=== PATIENT | female | born 1985 | race Caucasian/White ===

== ENCOUNTER 2021-02-26 09:11 | Emergency (ER) | payer BC ==
--- NOTE | 2021-02-26 10:08 | EDM.PDOC ---
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 This all started back on Saturday with dysuria. She was prescribed bactrim and that night started having more irritation like she had a yeast infection. She tried a couple different over the counter treatments for yeast infection and nothing has worked. She has more pain so she went to the walk in clinic yesterday and they did a wet prep that was negative for candidiasis and bacteria. They also did a repeat UA and it s howed no UTI. She has more pain in the vulva and there is a yellow/greenish discharge. She had a little blood today. She has no fever or chills but she does not feel well. She had some abdominal pain initially and that is why she went in but she feels good now. She has no chest pain or shortness of breath. She has no trauma to the area such as rough intercourse. Onset: Gradual Duration: Day(s): (6) Location: Reports: Other (vulva) Quality: Reports: Sharp Severity: Severe Improves with: Reports: Immobilization Worsens with: Reports: Movement Context: Denies: Trauma Associated Symptoms: Reports: No Other Symptoms Vaginal Pain Score (Numeric/FACES): 8 - Related Data Allergies Allergy/AdvReac Type Severity Reaction Status Date / Time ciprofloxacin [From Cipro] Allergy Cannot Verified 02/26/21 09:32 Remember morphine Allergy Cannot Verified 02/26/21 09:32 Remember promethazine [From Phenergan] Allergy Cannot Verified 02/26/21 09:32 Remember Home Meds: Home Meds Nystatin/Triamcin [Nystatin-Triamcinolone Cream] 1 gm TP BID #30 gram 02/26/21 [Rx] hydrOXYzine HCL [hydrOXYzine] 25 mg PO BEDTIME PRN 02/26/21 [History] methylPREDNISolone [Medrol Dose Pack] 84 mg PO DAILY #1 dospk 02/26/21 [Rx] Past Medical History - Past Health History Medical/Surgical History: Denies Medical/Surgical History Social & Family History - Tobacco Use Tobacco Use Status *Q: Never Tobacco User Second Hand Smoke Exposure: No - Caffeine Use Caffeine Use: Reports: Coffee - Recreational Drug Use Recreational Drug Use: No ED ROS GENERAL - Review of Systems Review Of Systems: See Below Constitutional: Reports: No Symptoms HEENT: Reports: No Symptoms Respiratory: Reports: No Symptoms Cardiovascular: Reports: No Symptoms Endocrine: Reports: No Symptoms GI/Abdominal: Reports: No Symptoms : Reports: Other (Vulvar pain) Musculoskeletal: Reports: No Symptoms Skin: Reports: No Symptoms ED EXAM, RENAL/ - Physical Exam Exam: See Below Exam Limited By: No Limitations General Appearance: Alert, No Apparent Distress Ears: Normal External Exam Nose: Normal Inspection Head: Atraumatic, Normocephalic Neck: Normal Inspection Respiratory/Chest: No Respiratory Distress, Lungs Clear, Normal Breath Sounds Cardiovascular: Regular Rate, Rhythm, No Edema, No Murmur GI/Abdominal: Soft, Non-Tender, No Organomegaly, No Mass (Female) Exam: Other (The labia are tender with moderate edema of the labia minora. Slight whitish discharge.) Course - Vital Signs Last Recorded V/S: Last Vital Signs Temp 98.7 F 02/26/21 09:27 Pulse 87 02/26/21 09:27 Resp 18 02/26/21 09:27 BP 149/81 H 02/26/21 09:27 Pulse Ox 99 02/26/21 09:27 - Orders/Labs/Meds Orders: Active Orders 24 hr Category Date Time Status CULTURE HERPES SIMPLEX VIRUS [MREF] Stat Lab 02/26/21 12:42 Ordered MISCELLANEOUS CULT [MREF] Stat Lab 02/26/21 13:00 Ordered Labs: Laboratory Tests 02/26/21 Range/Units 09:48 C trachomatis DNA (PCR) Not detected N gonorrhoeae DNA (PCR) Not detected - Re-Assessments/Exams Free Text/Narrative Re-Assessment/Exam: 02/26/21 10:10 I ordered a gonorrhea and chlamydia through urine. 02/26/21 12:12 Her gonorrhea and chlamydia are negative. I called Dr Hayward and he recommended some nystatin cream with a steroid in it, sits bath with baby soap, ice and some benadryl. He thinks she may have reacted to the bactrim. I told her the plan and she got upset and started crying. She said she has tried most of those things and this is negatively affecting her life. She asked if he could come in and see her. I talked to Dr Hayward and he agreed to come in and see her. 02/26/21 13:07 He saw her and with loops he saw a small fissure and swelling. He is doing a culture and herpes culture. He recommended a medrol dose pack, epsum salts, and benadryl. Departure - Departure Time of Disposition: 13:10 Disposition: Home, Self-Care 01 Condition: Good Clinical Impression: Vulvar burning, Vulvar fissure - Discharge Information *PRESCRIPTION DRUG MONITORING PROGRAM REVIEWED*: Not Applicable *COPY OF PRESCRIPTION DRUG MONITORING REPORT IN PATIENT CIELO: Not Applicable Prescriptions: methylPREDNISolone [Medrol Dose Pack] 84 mg PO DAILY #1 dospk Nystatin/Triamcin [Nystatin-Triamcinolone Cream] 1 gm TP BID #30 gram Referrals: Cecile Urbano PA [Primary Care Provider] - Austin Hayward MD [Physician] - 1 Week Forms: ED Department Discharge Additional Instructions: Take the medrol dose pack as prescribed. Take the upsom salts 2 tablespoons in 16 ounces of water and make a compress and apply that to the affected area. Try some benadryl 50mg every 6 hours as needed for symptoms. Follow up with Dr Hayward. Please return if you are worse. Sepsis Event Note (ED) - Evaluation Sepsis Screening Result: No Definite Risk - Focused Exam Vital Signs: Vital Signs Temp Pulse Resp BP Pulse Ox 02/26/21 09:27 98.7 F 87 18 149/81 H 99 - My Orders Last 24 Hours: My Active Orders 02/26/21 12:42 CULTURE HERPES SIMPLEX VIRUS [MREF] Stat 02/26/21 13:00 MISCELLANEOUS CULT [MREF] Stat - Assessment/Plan Last 24 Hours: My Active Orders 02/26/21 12:42 CULTURE HERPES SIMPLEX VIRUS [MREF] Stat 02/26/21 13:00 MISCELLANEOUS CULT [MREF] Stat
[2021-02-26 11:35] LABS: C. TRACHOMATIS BY PCR NOT DETECTED; N. GONORRHOEAE BY PCR NOT DETECTED
--- NOTE | 2021-02-26 13:11 | PCM.CONS ---
H&P History of Present Illness - General Date of Service: 02/26/21 Source of Information: Patient History Limitations: Reports: No Limitations - History of Present Illness Initial Comments - Free Text/Narative: 35-year-old previous C-sections. Patient presented to emergency room complaining of vulvar irritation beginning last January. Prior to that she had taken 3 doses of Septra DS for urinary tract infection symptoms. She is complaining of vulvar irritation pain she has been seen and had negative wet prep previously elsewhere. The patient has had no history of herpes genitalis in the past. The vulvar pain is also associated with edema. Examination revealed vulvar edema of the labia minora bilaterally with medial surface of each labia minora showing small "cracks" or fissures.. Utilizing loupes no blisters or ulcerations are seen however herpes simplex virus culture taken. Unable to do vaginal exam because of the pain associated with the vulvar edema and "cracks" or fissures. Impression N94.89vulvar burning N90.89 Vulvar fissure Plan: Initially would have prescribed Domeboro packets dissolved 1-3 in 16 ounces of water but not available at the pharmacy which is the only 1 open on Saturday. Patient will check with her pharmacy in [place] Saturday to see if they have the Domeboro packets or can order them if treatment below does not work effectively. Epson salts 1- 2 tablespoons dissolved in 16 ounces of water and utilize as a compress on the vulva 15 to 30 minutes 3-4 times daily may also place large amount and shallow tub of water and sitz bath 3-4 times daily Benadryl 25 mg OTC use every 6 hours for the next 12 to 24 hours to see if this will help with the irritation and edema in the vulvar area. Do not drive while taking this medication Medrol Dosepak take as directed on the package. Herpes simplex culture taken. Contact my office Saturday if patient thinks Domeboro would help and they can order it at [place] pharmacy. Patient given my nurses name and phone number. See Dr. Lopez for follow-up if symptoms persist Pelvic rest until symptoms resolved. Patient cautioned to avoid Septra/Bactrim in the future. Possible untoward effect of sulfa. Patient has had no skin rash. Symptom Onset Date: 02/21/21 Duration of Symptoms: Reports: Day(s): Quality: Reports: Burning, Throbbing Improves with: Reports: None Worsens with: Reports: None Associated Symptoms: Reports: No Other Symptoms Vaginal Pain Score (Numeric/FACES): 8 - Related Data Allergies/Adverse Reactions: Allergies Allergy/AdvReac Type Severity Reaction Status Date / Time ciprofloxacin [From Cipro] Allergy Cannot Verified 02/26/21 09:32 Remember morphine Allergy Cannot Verified 02/26/21 09:32 Remember promethazine [From Phenergan] Allergy Cannot Verified 02/26/21 09:32 Remember Home Medications: Home Meds Nystatin/Triamcin [Nystatin-Triamcinolone Cream] 1 gm TP BID #30 gram 02/26/21 [Rx] hydrOXYzine HCL [hydrOXYzine] 25 mg PO BEDTIME PRN 02/26/21 [History] methylPREDNISolone [Medrol Dose Pack] 84 mg PO DAILY #1 dospk 02/26/21 [Rx] Past Medical History - Past Health History Medical/Surgical History: Denies 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 No vaginal deliveries. One miscarriage.) : 3 Para: 2 (2011) Social & Family History - Tobacco Use Tobacco Use Status *Q: Never Tobacco User Second Hand Smoke Exposure: No - Caffeine Use Caffeine Use: Reports: Coffee - Recreational Drug Use Recreational Drug Use: No H&P Review of Systems - Review of Systems: Review Of Systems: See Below General: Reports: No Symptoms HEENT: Reports: No Symptoms Pulmonary: Reports: No Symptoms Cardiovascular: Reports: No Symptoms Gastrointestinal: Reports: No Symptoms Genitourinary: Reports: Burning, Pain Musculoskeletal: Reports: No Symptoms Skin: Reports: No Symptoms Psychiatric: Reports: No Symptoms Neurological: Reports: No Symptoms Hematologic/Lymphatic: Reports: No Symptoms Immunologic: Reports: No Symptoms Exam - Exam Exam: See Below (More like vaginal fissures (labia minora bilaterally medial surface with some labia minora edema as well.)) - Vital Signs Vital Signs: Last Vital Signs Temp 98.7 F 02/26/21 09:27 Pulse 87 02/26/21 09:27 Resp 18 02/26/21 09:27 BP 149/81 H 02/26/21 09:27 Pulse Ox 99 02/26/21 09:27 Weight: 219 lb - Exam General: Alert, Oriented (Female) Exam: Vaginal Tears - Patient Data Lab Results Last 24 hrs: Laboratory Results - last 24 hr 02/26/21 Range/Units 09:48 C trachomatis DNA (PCR) Not detected N gonorrhoeae DNA (PCR) Not detected Sepsis Event Note - Evaluation Sepsis Screening Result: No Definite Risk - Focused Exam Vital Signs: Vital Signs Temp Pulse Resp BP Pulse Ox 02/26/21 09:27 98.7 F 87 18 149/81 H 99 Consult PN Assessment/Plan (1) Vulvar burning SNOMED Code(s): 741975723 Code(s): N94.89 - OTH COND ASSOC W FEMALE GENITAL ORGANS AND MENSTRUAL CYCLE Current Visit: Yes (2) Vulvar fissure SNOMED Code(s): 4422727 Code(s): N90.89 - OTH NONINFLAMMATORY DISORDERS OF VULVA AND PERINEUM C urrent Visit: Yes Problem List Initiated/Reviewed/Updated: No Plan: Return if symptoms worsen or concerns.
== END 2021-02-26 13:20 | disposition home or self-care (01) ==
LOC: JD.ED 09:11
DX: N90.89 Other specified noninflammatory disorders of vulva and perineum (principal); Z88.1 Allergy status to other antibiotic agents; Z88.5 Allergy status to narcotic agent; Z88.8 Allergy status to other drugs, medicaments and biological substances
CPT/HCPCS: 87070; 87205; 87491; 87591; 87801; 99283

== ENCOUNTER 2021-06-09 07:18 | Day surgery (SDC) | payer BC ==
[~2021-06-09 07:18] MED LIST: Lactated Ringers 1,000 ML IV SCH; Lidocaine 1%/Sod Bicarbonate in NS 8.4% 1 ML Syringe IDERM PRN; Sodium Chloride 0.9% 10 ML Syringe FLUSH PRN
[2021-06-09] MEDS ORDERED: Lidocaine 1% 4 ML ONE (07:53)
[2021-06-09] MEDS ORDERED: fentaNYL 100 MCG/2 ML SDV ONE ×2 (07:54→09:42)
[2021-06-09] MEDS ORDERED: Midazolam 1 MG/ML 2 ML SDV ONE (07:54)
[2021-06-09] MEDS ORDERED: Propofol 200 MG/20 ML SDV ONE (07:54)
--- NOTE | 2021-06-09 08:13 | PCM.LDHP ---
L&D History of Present Illness - General Date of Service: 06/09/21 Admit Problem/Dx: Admission Diagnosis/Problem Admission Diagnosis/Problem 06/09/21 08:02 Missed Source of Information: Patient History Limitations: Reports: No Limitations - History of Present Illness Introduction:: Paola is a 36-year-old 4 now para 2-0-2-2 female who has had vaginal bleeding and cramping. With serial beta hCGs and has been noted to have decreasing titers. Ultrasound done at [facility] in [place] shows an irregular endometrial cavity with no evidence of cardiac activity or . Findings are consistent with a missed . Discussions been held with patient as to options of intervention including passage of the tissue, Cytotec medical induction of miscarriage or dilation and suction curettage. 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 The procedure, risk, benefits, alternatives of care discussed in detail with patient. She appears understand, wishes to proceed and signed consent. History: Menarche age 13, cycles q. 28-30 days duration 7 days. Patient is not using any contraception at the time of this conception. This was a desired . She does not have any significant symptoms at this time. She is doing well emotionally with this. Patient denied any significant abnormal Pap smears or STIs in the past. She has had x2. She has had 1 previous miscarriage which she passed naturally. Past medical history: 1. Spontaneous x2 2. Restless leg syndrome 3. Dysmenorrhea with clinical suspicion of endometriosis Past surgical history: 1. ERCP 2. Back surgery-11/21/2016 with L5-S1 discectomy 3. Back surgery 11/28/2016redo of L5-S1 discectomy 4. Back [id number] and fusionL5-S1 5. Echocardiogram done transthoracically 08/23/2016 6. Hysterosalpingogram 06/13/2015 7. Spinal tap 01/2015 to evaluate possibility of MS due to migraine headaches. 8. Thoracentesis for pulmonary effusion September 2014hospital-acquired pneumonia as a cause. 9. Bariatric surgery 11/30/2013 consisting of lap band removal and sleeve gastrectomy 10. T&A 07/21/2013 11. EGD 07/02/2013 12. 12/22/2012 13. Repeat 2018 14. Initial bariatric surgery consist of lap band 08/24/2009 15. [place] tooth extraction 2007 laparoscopic cholecystectomy 1998. Medications: 1. Probiotic daily 2. vitamin daily 3. Vitamin D 2000 international units daily Allergies: 1. Penicillin and amoxicillin specifically causes rash and itching 2. Cipro which given IV previously caused phlebitis 3. Morphine which cause migraines 4. Bee bites. Patient does report that cephalosporins are okay and do not cause any reactions Family history: Mother 2016 at age 71. Suffered from diabetes mellitus, rheumatoid arthritis, obesity, depression, hypertension, hypercholesterolemia, benign brain neoplasm. Cause of not specifically apparent. Father is alive but suffers from hypercholesterolemia, hypertension, posttraumatic stress disorder, obesity, depression, anxiety, arthritis. Patient has 4 sisters 1 with endometriosis and substance abuse disorder and depression the other 3 have depression and some mental health issues. Patient has brothers all with obesity and depression symptoms. Paternal grandfather secondary to diabetes mellitus and COPD paternal grandmother secondary stroke, did have mental health disorders. Paternal grandfather secondary stroke. Also suffered from depression. Maternal grandfather secondary to diabetes complications and obesity. Maternal uncle with some type of lung metastases. Social history: Patient is . She lives in [place], [place]. 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 She does not use any significance alcohol, drugs or tobacco. 's name is Shree. Review of systems: In general patient has no complaints other than cramping and bleeding consistent with miscarriage. No significant symptoms noted. Skin: Negative Lungs: No infectious symptoms or shortness of breath Cardiovascular: No chest pain or exercise intolerance Breasts: No lumps, changes in size, pain, dimpling, discharge or axillary or supraclavicular concerns. GI: Negative : As per HPI. Musculoskeletal: Negative Neurological: Negative Physical exam: In general the patient is well-developed, well-nourished, pleasant female of stated age in no acute distress. Skin is warm dry without lesions. HEENT, neck and back within normal limits. Lungs are clear with good breath sounds in all lung moreno. Cardiovascular exam shows regular and rhythm without murmurs. Abdomen is flat, soft, nontender without masses or organomegaly. Positive bowel sounds are noted. No inguinal lymphadenopathy or hernias are noted. Genital exam will be performed under anesthesia. Ultrasound done in [place] showed an essentially normal size uterus and otherwise findings as described above.. Extremities and neurological exam are grossly within normal limits. - Related Data Allergies/Adverse Reactions: Allergies Allergy/AdvReac Type Severity Reaction Status Date / Time ciprofloxacin [From Cipro] Allergy Cannot Verified 02/26/21 09:32 Remember morphine Allergy Cannot Verified 02/26/21 09:32 Remember promethazine [From Phenergan] Allergy Cannot Verified 02/26/21 09:32 Remember Home Medications: Home Meds Nystatin/Triamcin [Nystatin-Triamcinolone Cream] 1 gm TP BID #30 gram 02/26/21 [Rx] hydrOXYzine HCL [hydrOXYzine] 25 mg PO BEDTIME PRN 02/26/21 [History] methylPREDNISolone [Medrol Dose Pack] 84 mg PO DAILY #1 dospk 02/26/21 [Rx] Past Medical History - Past Health History Medical/Surgical History: Denies 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 No vaginal deliveries. One miscarriage.) Social & Family History - Caffeine Use Caffeine Use: Reports: Coffee H&P Review of Systems - Review of Systems: Review Of Systems: See Below L&D Exam - Exam Exam: See Below - Problem List (1) Missed SNOMED Code(s): 14966165 ICD Code: O02.1 - MISSED Status: Acute Current Visit: Yes Problem List Initiated/Reviewed/Updated: Yes Orders Last 24hrs: Active Orders 24 hr Category Date Time Status Peripheral IV Care [RC] . DIRECTED Care 06/09/21 00:01 Active Verify Patient Consent Obtain [RC] ASDIRECTED Care 06/09/21 00:01 Active CBC WITH AUTO DIFF [HEME] Routine Lab 06/09/21 08:00 Ordered TYPE AND SCREEN [BBK] Routine Lab 06/09/21 08:00 Ordered Lactated Ringers [Ringers, Lactated] 1,000 ml Med 06/09/21 00:01 Active IV ASDIRECTED Lidocaine 1%/Sod Bicarbonate [Buffered Lidocaine 1% in Med 06/09/21 00:01 Active NS 8.4%] 0.25 ml IDERM ONETIME PRN Sodium Chloride 0.9% [Saline Flush] Med 06/09/21 00:01 Active 10 ml FLUSH ASDIRECTED PRN Medication Administration Instruction [OM.PC] Routine Oth 06/09/21 00:01 Ordered Peripheral IV Insertion Adult [OM.PC] Routine Oth 06/09/21 00:01 Ordered Medication Orders Lactated Ringer's (Ringers, Lactated) 1,000 mls @ 125 mls/hr IV ASDIRECTED FREDA Stop: 06/09/21 23:00 Lidocaine/Sodium Bicarbonate (Lidocaine 1%/Sod Bicarbonate In Ns 8.4% 1 Ml S yringe) 0.25 ml IDERM ONETIME PRN PRN Reason: Prior to IV Start Stop: 06/09/21 18:00 Sodium Chloride (Sodium Chloride 0.9% 10 Ml Syringe) 10 ml FLUSH ASDIRECTED PRN PRN Reason: Keep Vein Open Stop: 06/09/21 18:00 Assessment/Plan Comment:: 1. First trimester missed by laboratory testing, clinical history and ultrasound evaluation 2. History of multiple surgical procedures. 3. History of miscarriage x1 and x2 4. Blood is O+ per evaluation done previouslypatient not a candidate for Rh immunoglobulin therapy. Plan: 1. Dilation and suction curettage under general anesthesia. Procedure, risk, benefits, alternatives of care and follow-up were discussed in detail with patient. 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 She desires dilation and suction curettage as therapy of choice. She has signed consent. 2. DVT prophylaxis with SCDs 3. CBC preoperatively 4. Ancef 2 g IV preoperatively for infection prophylaxis.
--- NOTE | 2021-06-09 08:22 | PCM.PREANE ---
Preanesthetic Assessment - Procedure Proposed Procedure: Dilation and curettage - Anesthesia/Transfusion/Family Hx Anesthesia History: Prior Anesthesia Without Reaction Family History of Anesthesia Reaction: No Transfusion History: No Prior Transfusion(s) Intubation History: Unknown - Review of Systems General: No Symptoms Pulmonary: No Symptoms Cardiovascular: No Symptoms Gastrointestinal: Abdominal Pain (intermittent cramping) Neurological: Headache Other: Reports: Easy Bruising, Depression, Anxiety - Physical Assessment NPO Status Date: 06/08/21 NPO Status Time: 21:30 Vital Signs: 103/65 HR 60 RR 16 100% 98.7 Height: 1.68 m Weight: 93.6 kg ASA Class: 3 Mental Status: Alert & Oriented x3 Dentition: Reports: Normal Dentition Thyro-Mental Finger Breadths: 3 Mouth Opening Finger Breadths: 3 ROM/Head Extension: Full Lungs: Clear to Auscultation, Normal Respiratory Effort Cardiovascular: Regular Rate, Regular Rhythm - Lab Values: Labs reviewed and okay to proceed - Allergies Allergies/Adverse Reactions: Allergies Allergy/AdvReac Type Severity Reaction Status Date / Time ciprofloxacin [From Cipro] Allergy Other Verified 06/09/21 08:55 morphine Allergy Headache Verified 06/09/21 08:55 Penicillins Allergy Rash Verified 06/09/21 08:53 promethazine [From Phenergan] Allergy Other Verified 06/09/21 08:55 sulfamethoxazole Allergy Rash Verified 06/09/21 08:55 [From Bactrim] trimethoprim [From Bactrim] Allergy Rash Verified 06/09/21 08:55 - Blood Blood Available: No Product(s) Available: None - Anesthesia Plan Pre-Op Medication Ordered: None - Acknowledgements Anesthesia Type Planned: MAC Pt an Appropriate Candidate for the Planned Anesthesia: Yes Alternatives and Risks of Anesthesia Discussed w Pt/Guardian: Yes Pt/Guardian Understands and Agrees with Anesthesia Plan: Yes PreAnesthesia Questionnaire - Past Health History Medical/Surgical History: Denies Medical/Surgical History HEENT History: Reports: Impaired Vision Other HEENT History: wears glasses 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 No vaginal deliveries. One miscarriage.) Other OB/BYN History: Spontaneous abortions x 2, dysmenorrhea Neurological History: Reports: Migraines Other Neuro History: Restless legs syndrome Psychiatric History: Reports: Anxiety, Depression Hematologic History: Reports: Anemia - Past Surgical History HEENT Surgical History: Reports: Adenoidectomy, Oral Surgery, Tonsillectomy Respiratory Surgical History: Reports: Thoracentesis Other Respiratory Surgeries/Procedures: Thoracentesis for pulmonary effusion September 2014- hospital aquired pneumonia as a cause GI Surgical History: Reports: Bariatric Procedure, Cholecystectomy, EGD, Other (See Below) Other GI Surgeries/Procedures: Lap band removal and sleeve gastrectomy 11/30/2013 Female Surgical History: Reports: Section Other Female Surgeries/Procedures: ERCP; hysterosalpingogram 06/13/2015; c- section x2 Neurological Surgical History: Reports: Lumbar Spine Other Neurological Surgeries/Procedures: 11/21/2016: L5- S1 discectomy; 11/28/16 redo L5-S1; 11/30/16 L5-S1 decompression and fusion; Spinal tap 01/2015 (migraine headaches) - Past Imaging History Past Imaging History: Reports: Cardiac Echo (08/23/2016) - SUBSTANCE USE Tobacco Use Status *Q: Former Tobacco User (Quit 2016) Tobacco Use Within Last Twelve Months: No Second Hand Smoke Exposure: No Days Per Week of Alcohol Use: 0 Number of Drinks Per Day: 0 Total Drinks Per Week: 0 Recreational Drug Use History: No - HOME MEDS Home Medications: Home Meds Nystatin/Triamcin [Nystatin-Triamcinolone Cream] 1 gm TP BID #30 gram 02/26/21 [Rx] hydrOXYzine HCL [hydrOXYzine] 25 mg PO BEDTIME PRN 02/26/21 [History] methylPREDNISolone [Medrol Dose Pack] 84 mg PO DAILY #1 dospk 02/26/21 [Rx] - CURRENT (IN HOUSE) MEDS Current Meds: Current Medications Lactated Ringer's (Ringers, Lactated) 1,000 mls @ 125 mls/hr IV ASDIRECTED FREDA Stop: 06/09/21 23:00 Lidocaine/Sodium Bicarbonate (Lidocaine 1%/Sod Bicarbonate In Ns 8.4% 1 Ml Syringe) 0.25 ml IDERM ONETIME PRN PRN Reason: Prior to IV Start Stop: 06/09/21 18:00 Sodium Chloride (Sodium Chloride 0.9% 10 Ml Syringe) 10 ml FLUSH ASDIRECTED PRN PRN Reason: Keep Vein Open Stop: 06/09/21 18:00 Discontinued Medications Fentanyl (Fentanyl 100 Mcg/2 Ml Sdv) Confirm Administered Dose 100 mcg .ROUTE .STK-MED ONE Stop: 06/09/21 07:55 Lidocaine HCl (Xylocaine-Mpf 1%) Confirm Administered Dose 4 mls @ as directed .ROUTE .STK-MED ONE Stop: 06/09/21 07:54 Midazolam HCl (Midazolam 1 Mg/Ml 2 Ml Sdv) Confirm Administered Dose 2 mg .ROUTE .STK-MED ONE Stop: 06/09/21 07:55 Propofol (Propofol 200 Mg/20 Ml Sdv) Confirm Administered Dose 200 mg .ROUTE .STK-MED ONE Stop: 06/09/21 07:55
[2021-06-09] MEDS ORDERED: Ketamine 500 mg/10 ML MDV ONE (08:59)
[2021-06-09] MEDS ORDERED: ceFAZolin 1 GM Vial ONE (09:17)
[2021-06-09] MEDS ORDERED: Ketorolac 30 MG/ML SDV ONE (09:41)
[2021-06-09] MEDS ORDERED: Ondansetron 4 MG/2 ML SDV IVPUSH PRN ×2 (09:43→09:53)
[2021-06-09] MEDS ORDERED: Ondansetron 4 MG/2 ML SDV ONE (09:46)
[2021-06-09] MEDS ORDERED: HYDROmorphone 0.5 MG/0.5 ML Syringe ONE (09:47)
--- NOTE | 2021-06-09 09:47 | PCM.OPNOTE ---
- General Post-Op/Procedure Note Date of Surgery/Procedure: 06/09/21 Operative Procedure(s): Exam under anesthesia, dilation and suction curettage Findings: Uterus was enlarged approximately 8 weeks size. It was anterior in position, freely mobile. Cervix was somewhat stenotic. No adnexal abnormalities were noted. Uterus sounded to 10.5 cm. Moderate amount of tissue was obtained consistent with products of conception and consistent with patient's gestational age. Pre Op Diagnosis: Missed Post-Op Diagnosis: Same Anesthesia Technique: MAC Primary Surgeon: Nabil Lopez Anesthesia Provider: Jesús Faye Pathology: Endometrial curettings consistent with products of conception. EBL in mLs: 10 Complications: None Condition: Good Free Text/Narrative:: Surgery duration: 5 minutes The patient was taken to the operating room and placed in a supine position operating table. She received 2 g of Ancef preoperatively for infection prophylaxis and had sequential compression stockings in place for DVT prophylaxis. After adequate MAC anesthesia patient was placed in a dorsal lithotomy position. A weighted speculum was placed in the vagina. Cervix is found to be somewhat stenotic. No bleeding was noted. Uterus was sounded to approximately 10.5 cm. It was found to be anterior and mid position. An 7 mm suction curette was then introduced in routine fashion the endometrial cavity was evacuated. Moderate amount tissue was obtained. Findings consistent with products of conception. A medium size sharp curet was introduced and very careful fashion the endometrial cavity was curetted. It was be clear of any further tissue. The suction curet was then reintroduced and small and blood was removed. No further tissue was removed. This point the D&C was discontinued. The single-toothed tenaculum used to stabilize the anterior lip the cervix was removed. Blood was removed from the vagina with a stick sponge and the weighted speculum was removed from the vagina. The patient was awakened from MAC anesthesia. The patient was discharged from the operating room in good condition.
[2021-06-09] MEDS ORDERED: HYDROmorphone 0.5 MG/0.5 ML Syringe IVPUSH PRN (09:53)
[2021-06-09] MEDS ORDERED: fentaNYL 100 MCG/2 ML SDV IVPUSH PRN (09:53)
--- NOTE | 2021-06-09 09:57 | PCM.POSTAN ---
POST ANESTHESIA ASSESSMENT - MENTAL STATUS Mental Status: Alert, Oriented - VITAL SIGNS Vital Signs: Last Vital Signs Temp 98.7 F 06/09/21 07:40 Pulse 60 06/09/21 07:40 Resp 16 06/09/21 07:40 BP 103/65 06/09/21 07:40 Pulse Ox 100 06/09/21 07:40 0948 96/57 57 18 97.5 98% - RESPIRATORY Respiratory Status: Respiratory Rate WNL, Airway Patent, O2 Saturation Stable, Supplemental Oxygen - CARDIOVASCULAR CV Status: Pulse Rate WNL, Blood Pressure Stable - GASTROINTESTINAL GI Status: No Symptoms - PAIN Pain Score: 10 - POST OP HYDRATION Hydration Status: Adequate & Stable
--- NOTE | 2021-06-09 10:38 | PCM48HPAN ---
Post Anesthesia Note - EVALUATION WITHIN 48HRS OF ANESTHETIC Vital Signs in Normal Range: Yes Patient Participated in Evaluation: Yes Respiratory Function Stable: Yes Airway Patent: Yes Cardiovascular Function Stable: Yes Hydration Status Stable: Yes Pain Control Satisfactory: Yes Nausea and Vomiting Control Satisfactory: Yes Mental Status Recovered: Yes Vital Signs: Last Vital Signs Temp 97.5 F 06/09/21 09:48 Pulse 60 06/09/21 07:40 Resp 11 L 06/09/21 10:10 BP 100/56 L 06/09/21 10:10 Pulse Ox 100 06/09/21 10:10
[2021-06-09] MEDS ORDERED: Ketorolac 30 MG/ML SDV IVPUSH PRN (15:30)
[2021-06-09] MEDS ORDERED: Ibuprofen 600 MG Tab PO PRN (21:30)
== END 2021-06-09 11:00 | disposition home or self-care (01) ==
LOC: JD.SDS 07:18
PROVIDERS: ATTEND Obstetrics & Gynecology
DX: O02.1 Missed abortion (principal); Z98.890 Other specified postprocedural states; Z79.899 Other long term (current) drug therapy; Z88.0 Allergy status to penicillin; Z88.5 Allergy status to narcotic agent; Z88.8 Allergy status to other drugs, medicaments and biological substances; Z91.030 Bee allergy status; Z88.2 Allergy status to sulfonamides
CPT/HCPCS: 36415; 59820; 85025; J0690; J1170; J1885; J2250; J2405; J2704; J3010; J7120; 01965

== ENCOUNTER 2022-04-02 02:31 | Inpatient (IN) | payer BC ==
[2022-04-02] MEDS ORDERED: Lactated Ringers 1,000 ML IV SCH (06:00)
[2022-04-02] MEDS ORDERED: Sodium Chloride 0.9% 10 ML Syringe FLUSH PRN (06:00)
[2022-04-02] MEDS ORDERED: Metoclopramide 10 MG/2 ML SDV IVPUSH ONE (06:30)
[2022-04-02] MEDS ORDERED: Citric Acid/Sodium Citrate Solution 30 ML Cup PO ONE (06:30)
[2022-04-02] MEDS ORDERED: Oxytocin 10 Units/1 ML SDV ONE ×2 (06:40→06:41)
[2022-04-02] MEDS ORDERED: Ketorolac 30 MG/ML SDV ONE (06:40)
[2022-04-02] MEDS ORDERED: ceFAZolin 1 GM Vial ONE (06:40)
[2022-04-02] MEDS ORDERED: Lactated Ringers 2,000 ML ONE (06:40)
[2022-04-02] MEDS ORDERED: Ondansetron 4 MG/2 ML SDV ONE (06:40)
[2022-04-02] MEDS ORDERED: Morphine PF 10 MG/10 ML SDV ONE (06:41)
[2022-04-02] MEDS ORDERED: Bupivacaine 0.5% 30 ML SDV ONE (06:44)
[2022-04-02] MEDS ORDERED: ceFAZolin 2 GM in Sodium Chloride 0.9% 50 ML IV ONE (07:00)
[2022-04-02] MEDS ORDERED: Oxytocin/Lactated Ringers 20 UNIT/1,000 ML BAG IV SCH (07:30)
[2022-04-02] MEDS ORDERED: ePHEDrine 50 MG/ML SDV ONE (07:36)
[2022-04-02] MEDS ORDERED: Sodium Chloride 0.9% 10 ML Syringe FLUSH SCH (09:00)
[2022-04-02] MEDS ORDERED: diphenhydrAMINE 50 MG/ML SDV IVPUSH PRN (10:15)
[2022-04-02] MEDS ORDERED: Dextrose 5%-Lactated Ringers 1,000 ML IV SCH (10:15)
[2022-04-02] MEDS ORDERED: ePHEDrine 50 MG/ML SDV IVPUSH PRN (10:15)
[2022-04-02] MEDS ORDERED: Ondansetron 4 MG/2 ML SDV IV PRN (10:15)
[2022-04-02] MEDS ORDERED: Naloxone 0.4 MG/ML SDV IVPUSH PRN (10:15)
[2022-04-02] MEDS: FLUoxetine 20 MG Cap PO SCH (12:14)
[2022-04-02] MEDS: Docusate Sodium 100 MG Cap PO SCH (12:14)
[2022-04-02] MEDS: Prenatal Multivitamin with Calcium/Folic Acid/Iron Tab PO SCH (12:14)
[2022-04-02] MEDS: Simethicone 80 MG Tab.Chew PO SCH ×4 (12:14→20:31)
[2022-04-02] MEDS: Ibuprofen 800 MG Tab PO SCH ×2 (13:52→21:59)
[2022-04-02] MEDS: Acetaminophen/oxyCODONE 325-5 MG Tab PO PRN ×2 (16:04→20:30)
[2022-04-03] MEDS: Docusate Sodium 100 MG Cap PO SCH ×3 (00:26→23:18)
[2022-04-03] MEDS: Acetaminophen/oxyCODONE 325-5 MG Tab PO PRN ×4 (00:56→20:59)
[2022-04-03] MEDS: Ibuprofen 800 MG Tab PO SCH ×3 (05:43→23:18)
[2022-04-03] MEDS: Simethicone 80 MG Tab.Chew PO SCH ×4 (15:39→21:00)
[2022-04-03] MEDS: FLUoxetine 20 MG Cap PO SCH (15:39)
[2022-04-03] MEDS: Prenatal Multivitamin with Calcium/Folic Acid/Iron Tab PO SCH (15:40)
[2022-04-04] MEDS: Acetaminophen/oxyCODONE 325-5 MG Tab PO PRN ×3 (01:13→10:58)
[2022-04-04] MEDS: Ibuprofen 800 MG Tab PO SCH (05:54)
[2022-04-04] MEDS ORDERED: Measles, Mumps & Rubella Vaccine 0.5 ML SDV SUBCUT ONE (08:47)
[2022-04-04] MEDS: Simethicone 80 MG Tab.Chew PO SCH (10:11)
== END 2022-04-04 11:00 | disposition home or self-care (01) | DRG 540 ==
LOC: JD.OB 04:46 → PREOBSVTOIN 05-07 02:29
PROVIDERS: ADMIT Obstetrics & Gynecology; ATTEND Obstetrics & Gynecology
PROC: 10D00Z1 Extraction of Products of Conception, Low, Open Approach (ICD-10-PCS; 2022-04-02)
PROC: 3E0234Z Introduction of Serum, Toxoid and Vaccine into Muscle, Percutaneous Approach (ICD-10-PCS; principal; 2022-04-04)
DX: O34.211 Maternal care for low transverse scar from previous cesarean delivery (principal); Z37.0 Single live birth; O32.1XX0 Maternal care for breech presentation, not applicable or unspecified; Z3A.38 38 weeks gestation of pregnancy; O99.344 Other mental disorders complicating childbirth; F41.9 Anxiety disorder, unspecified; F32.A Depression, unspecified; Z23 Encounter for immunization; Z98.84 Bariatric surgery status
CPT/HCPCS: 01961; 36415; 59025; 82947; 85025; 86592; 86850; 86900; 86901; 90471; 90707; A9270-GY; J0690; J1885; J2274; J2405; J2590; J2765; J3490; J7120; J7121

== ENCOUNTER 2023-10-29 07:00 | Inpatient (IN) | payer BC ==
[~2023-10-29 07:00] MED LIST changes: -Lactated Ringers 1,000 ML IV SCH; +Lidocaine 1% 8 ML ONE; -Lidocaine 1%/Sod Bicarbonate in NS 8.4% 1 ML Syringe IDERM PRN; +Midazolam 1 MG/ML 2 ML SDV ONE; +Propofol 200 MG/20 ML SDV ONE; +Sodium Chloride 0.9% 10 ML Syringe FLUSH SCH; +Succinylcholine 200 MG/10 ML MDV ONE; +fentaNYL 250 MCG/5 ML SDV ONE
[2023-10-29] MEDS ORDERED: ceFAZolin 2 GM Vial ONE (07:15)
[2023-10-29] MEDS ORDERED: Ondansetron 4 MG/2 ML SDV ONE (07:15)
[2023-10-29] MEDS: Lactated Ringers 1,000 ML IV SCH ×2 (07:20→10:56)
[2023-10-29 07:49] LABS: APPEARANCE,URINE CLEAR (Clear); BILIRUBIN,URINE NEGATIVE (Negative); COLOR,URINE YELLOW (Yellow); GLUCOSE,URINE NEGATIVE (Negative); KETONES,URINE NEGATIVE (Negative); LEUKOCYTE ESTERASE,URINE NEGATIVE (Negative); NITRITE,URINE NEGATIVE (Negative); OCCULT BLOOD,URINE 1+ (Negative); PH,URINE 5.5 (5.0-8.0); PROTEIN,URINE NEGATIVE (Negative); UROBILINOGEN,URINE 0.2 (0.2-1.0)
[2023-10-29] MEDS ORDERED: Ketamine 200 MG/20 ML MDV ONE (07:57)
[2023-10-29] MEDS ORDERED: dexmedeTOMIDine HCl 200 MCG/2 ML SDV ONE (08:03)
[2023-10-29] MEDS ORDERED: HYDROmorphone 0.5 MG/0.5 ML Syringe ONE (08:18)
[2023-10-29] MEDS ORDERED: Metoclopramide 10 MG/2 ML SDV ONE (08:26)
[2023-10-29] MEDS ORDERED: Dexamethasone 4 MG/ML 5 ML MDV ONE (08:26)
[2023-10-29] MEDS: Bupivacaine 0.5% 30 ML SDV ONE ×2 (08:31→09:23)
[2023-10-29] MEDS ORDERED: Lactated Ringers 1,000 ML IV ONE (09:00)
[2023-10-29] MEDS: EPINEPHrine 1 MG/ML SDV ONE ×2 (09:13→09:23)
[2023-10-29] MEDS: Bupivacaine 0.25% 10 ML SDV ONE ×2 (09:13→09:23)
[2023-10-29 09:34] LABS: BACTERIA,URINE FEW /hpf (FEW); MUCUS,URINE MODERATE /hpf (FEW); RBC,URINE 0-5 /hpf (0-5); WBC,URINE 0-5 /hpf (0-5)
[2023-10-29] MEDS ORDERED: Neostigmine Methylsulfate 10 MG/10 ML MDV ONE (09:38)
[2023-10-29] MEDS ORDERED: Ketorolac 30 MG/ML SDV ONE (09:39)
[2023-10-29] MEDS: HYDROmorphone 0.5 MG/0.5 ML Syringe IVPUSH PRN ×2 (11:00→11:15)
[2023-10-29] MEDS ORDERED: Ropivacaine 0.5% 5 MG/ML 30 ML SDV ONE (11:03)
[2023-10-29] MEDS: fentaNYL 100 MCG/2 ML SDV IVPUSH PRN ×2 (11:30→12:10)
[2023-10-29] MEDS ORDERED: Acetaminophen/oxyCODONE 325-5 MG Tab PO PRN ×3 (13:04→18:17)
[2023-10-29] MEDS ORDERED: Ondansetron 4 MG Tab.DIS PO PRN (13:04)
[2023-10-29] MEDS ORDERED: Ketorolac 30 MG/ML SDV IVPUSH PRN (18:00)
[2023-10-29] MEDS ORDERED: Naloxone 0.4 MG/ML SDV IVPUSH PRN (18:16)
[2023-10-29] MEDS: Ketorolac 30 MG/ML SDV IVPUSH PRN (18:28)
[2023-10-29] MEDS: HYDROmorphone 1 MG/ML Syringe IVPUSH PRN (18:31)
[2023-10-29] MEDS: Acetaminophen/oxyCODONE 325-5 MG Tab PO PRN (22:27)
[2023-10-30] MEDS: Ketorolac 30 MG/ML SDV IVPUSH PRN ×2 (00:49→07:55)
[2023-10-30] MEDS: HYDROmorphone 1 MG/ML Syringe IVPUSH PRN ×4 (01:54→15:09)
[2023-10-30] MEDS: Simethicone 80 MG Tab.Chew PO PRN ×5 (02:00→21:19)
[2023-10-30 06:21] LABS: BASOPHILS PERCENT AUTO 0.1 % (0.0-1.0); HEMATOCRIT 29.3 % (37.0-47.0); HEMOGLOBIN 9.6 gm/dl (12.0-16.0); IMMATURE GRAN ABSOLUTE AUTO 0.06 K/mm3 (0.00-0.05); IMMATURE GRAN PERCENT AUTO 0.5 % (0.0-0.4); LYMPHOCYTES ABSOLUTE AUTO 0.9 K/mm3 (1.0-4.8); LYMPHOCYTES PERCENT AUTO 7.8 % (24.0-44.0); MEAN CORPUSCULAR HEMOGLOBIN 28.2 pg (28.0-32.0); MEAN CORPUSCULAR HGB CONC 32.8 g/dl (32.0-36.0); MEAN CORPUSCULAR VOLUME 86.2 fl (83.0-99.0); MEAN PLATELET VOLUME 10.5 fl (9.4-12.3); MONOCYTES ABSOLUTE AUTO 0.8 K/mm3 (0.0-0.8); MONOCYTES PERCENT AUTO 6.7 % (0.0-8.0); NEUTROPHILS ABSOLUTE AUTO 9.8 K/mm3 (1.8-7.7); NEUTROPHILS PERCENT AUTO 84.9 % (41.0-71.0); PLATELET COUNT,PLT 157 K/mm3 (150-400); WHITE BLOOD CELL COUNT,WBC 11.55 K/mm3 (3.9-11.3)
[2023-10-30] MEDS: Acetaminophen/oxyCODONE 325-5 MG Tab PO PRN ×4 (07:41→21:17)
[2023-10-30] MEDS: Docusate Sodium 100 MG Cap PO SCH ×3 (12:48→21:15)
[2023-10-30] MEDS: Ibuprofen 600 MG Tab PO PRN ×2 (14:10→20:22)
[2023-10-31] MEDS: Acetaminophen/oxyCODONE 325-5 MG Tab PO PRN ×2 (00:57→05:19)
[2023-10-31] MEDS: Ibuprofen 600 MG Tab PO PRN ×2 (02:32→08:55)
[2023-10-31] MEDS: Simethicone 80 MG Tab.Chew PO PRN (05:19)
[2023-10-31] MEDS: Docusate Sodium 100 MG Cap PO SCH (08:55)
== END 2023-10-31 09:40 | disposition home or self-care (01) | DRG 513 ==
LOC: JD.SDS 07:00 → JD.OB 11:24
PROVIDERS: ADMIT Obstetrics & Gynecology; ATTEND Obstetrics & Gynecology
PROC: 0TN Urinary System, Release (ICD-10-PCS; 2023-10-29)
PROC: 0TN Urinary System, Release (ICD-10-PCS; 2023-10-29)
PROC: 0UT77ZZ Resection of Bilateral Fallopian Tubes, Via Natural or Artificial Opening (ICD-10-PCS; 2023-10-29)
PROC: 0UT27ZZ Resection of Bilateral Ovaries, Via Natural or Artificial Opening (ICD-10-PCS; 2023-10-29)
PROC: 0UT97ZZ Resection of Uterus, Via Natural or Artificial Opening (ICD-10-PCS; principal; 2023-10-29 08:00)
DX: N94.6 Dysmenorrhea, unspecified (principal); D64.9 Anemia, unspecified; N92.1 Excessive and frequent menstruation with irregular cycle; F41.9 Anxiety disorder, unspecified; F32.A Depression, unspecified; G43.909 Migraine, unspecified, not intractable, without status migrainosus; K21.9 Gastro-esophageal reflux disease without esophagitis; N73.6 Female pelvic peritoneal adhesions (postinfective); Z88.0 Allergy status to penicillin; Z88.8 Allergy status to other drugs, medicaments and biological substances; Z88.2 Allergy status to sulfonamides; Z98.890 Other specified postprocedural states; Z90.49 Acquired absence of other specified parts of digestive tract; Z90.89 Acquired absence of other organs; Z98.84 Bariatric surgery status; Z53.31 Laparoscopic surgical procedure converted to open procedure
CPT/HCPCS: 00840; 36415; 64425; 81001; 81025; 85025; 86850; 86900; 86901; A9270-GY; J0171; J0330; J0690; J1100; J1170; J1885; J2250; J2405; J2704; J2710; J2765; J2795; J3010; J3490; J7120